=== PATIENT | female | born 2000 | race Two or more races ===

== ENCOUNTER 2019-12-29 13:20 | Inpatient (IN) | payer MEDICAID ==
[~2019-12-29] VITALS: Ht 154.9 cm; Wt 66.7 kg
[2019-12-29] MEDS ORDERED: PREN-96 PO (13:48)
[2019-12-29] MEDS ORDERED: LACT. RINGERS/OXYTOCIN 20UNITS 1,000 ML IV SCH ×2 (14:11→19:23)
[2019-12-29] MEDS ORDERED: LACTATED RINGER'S 1,000 ML IV SCH (14:11)
[2019-12-29] MEDS ORDERED: LIDOCAINE 2%HCL (LOCAL ANESTH.) INJ 20ML MDV ID PRN (14:15)
[2019-12-29] MEDS ORDERED: DERMOPLAST 60ML BOTTLE TOP PRN (14:15)
[2019-12-29] MEDS ORDERED: PHISODERM TOP SOLN 240ML BTL TOP PRN (14:15)
[2019-12-29] MEDS ORDERED: ONDANSETRON HCL 4 MG/2 ML VIAL IV PRN (14:15)
[2019-12-29] MEDS ORDERED: BUTORPHANOL TARTRATE 2 MG/1 ML VIAL IV PRN (14:15)
[2019-12-29] MEDS ORDERED: METHYLERGONOVINE MALEATE 0.2 MG/ML AMP IM PRN (14:15)
[2019-12-29] MEDS: WITCH HAZEL-GLYCERIN PAD TOP PRN (15:04)
[2019-12-29 15:23] LABS: Basophils # (auto) 0 10 ^3/uL (0-0.2); Basophils % (auto) 0.1 % (0.0-2.0); Eosinophils # (auto) 0 10 ^3/uL (0-0.8); Eosinophils % (auto) 0.3 % (0.0-7.0); Hematocrit 36.7 % (36.0-46.0); Hemoglobin 12.3 g/dL (12.2-16.2); Lymphocytes # (auto) 1.8 10 ^3/uL (0.4-5.4); Lymphocytes % (auto) 20.2 % (10.0-50.0); Mean Corpuscular Hgb Conc. 33.4 g/dL (32.0-36.0); Mean Corpuscular Volume 89.8 fL (80.0-100.0); Monocytes # (auto) 0.6 10 ^3/uL (0-1.3); Neutrophils # (auto) 6.6 10 ^3/uL (1.6-8.6); Neutrophils % (auto) 72.4 % (37.0-80.0); Nucleated Red Blood Cells % 0.1 %; Platelet Count (auto) 259 10^3/uL (140-450); Red Blood Cells 4.09 10^6/uL (4.0-5.20); Red Cell Distribution Width 15.1 % (11.8-14.3); White Blood Cell 9.1 10^3/uL (4.4-10.8)
[2019-12-29 15:51] LABS: Albumin 2.8 g/dL (3.4-5.0); Calcium 8.9 mg/dL (8.5-10.1); Potassium 3.7 mmol/L (3.5-5.1)
[2019-12-29 15:52] LABS: INR 0.91 (0.9-1.15); Partial Thromboplastin Time 26.5 sec (23.0-31.2)
[2019-12-29 15:54] LABS: Bilirubin, Total 0.7 mg/dL (0.2-1.0); Total Protein 6.7 g/dL (6.4-8.2)
[2019-12-29] MEDS ORDERED: LACT. RINGERS/OXYTOCIN 20UNITS 500 ML IV ONE (18:23)
[2019-12-29] MEDS ORDERED: ACETAMINOPHEN 325 MG TAB PO PRN (20:15)
--- NOTE | 2019-12-29 20:46 | NUR ---
Ambulation: Patient OOB with standby assistance by RN. Patient ambulated to bathroom with steady gait. Patient able to void 500ml without difficulty. Pericare teaching provided with returned demonstration by patient. Clean gown provided and bed linen changed. Patient ambulated back to bed with steady gait and no distress noted.
[2019-12-29 23:30] VITALS: BP 110/68
[2019-12-30] MEDS: IBUPROFEN 600 MG TAB PO PRN ×5 (01:08→20:54)
[2019-12-30 03:30] VITALS: BP 109/59
--- NOTE | 2019-12-30 05:29 | NUR ---
IV removal IV DC'd with clean technique, catheter fully intact. Pressure dressing applied to site. Patient tolerated well. NOTE:
[2019-12-30 06:06] LABS: RPR Non Reactive (Non Reactive)
[2019-12-30 07:09] VITALS: BP 109/56
[2019-12-30] MEDS: WITCH HAZEL-GLYCERIN PAD TOP PRN (09:07)
[2019-12-30 11:33] VITALS: BP 120/71
[2019-12-30 15:00] VITALS: BP 116/61
--- NOTE | 2019-12-30 17:20 | NUR ---
CALLED DR. YOST WITH DEPRESSION SCORE OF 11. NEW ORDERS RECEIVED ORDER TELE PSYC, AND SOCIAL SERVICE CONSULT.
[2019-12-30 19:00] VITALS: BP 103/65
--- NOTE | 2019-12-30 21:15 | NUR ---
Tele Pysch monitor placed in pt room and set up. Information given to pt on what was going to take place. Pt verbalized understanding and is awaiting for the consultation to begin. Monitor on and camera checked.
[2019-12-30 23:10] VITALS: BP 112/61
[2019-12-31 03:00] VITALS: BP 109/64
[2019-12-31] MEDS: IBUPROFEN 600 MG TAB PO PRN (05:19)
[2019-12-31 07:00] VITALS: BP 101/55
--- NOTE | 2019-12-31 09:43 | NUR ---
Called Radha floorworker lasting, informed of consult for high PPD, SBAR given, tele psych completed. Verbalized understanding. Stated she will be on unit in 30 minutes.
--- NOTE | 2019-12-31 10:00 | NUR ---
Radha social problems specialist at bedside. Stated patient is cleared for discharge from her stand point.
[2019-12-31 11:00] VITALS: BP 105/58
--- NOTE | 2019-12-31 11:00 | NUR ---
Discharge: Discharge instructions given as ordered. Pt encouraged to follow up with [facility] as instructed. All questions and concerns addressed. Patient verbalized understanding. Medication reconciliation completed and copy given to patient. All required/requested vaccines given and copies of vaccinations given to patient. Patient encouraged to prepare to depart unit.
--- NOTE | 2019-12-31 11:40 | NUR ---
Discharge: Patient taken to vehicle via wheelchair with all personal belongings, accompanied by staff and family member. No distress noted at time of departure, no adverse changes in status since initial assessment.
--- NOTE | 2019-12-31 15:50 | NUR ---
assessment Per ss consult patient scored 11 on post depression scale. Patient is a 19 year old female who is alert and oriented. Patient lives home with her sig other and family. Patient is bonding well with . Patient is very positive. Patient has all provisions for the baby. Patient has great family an social support. FOB is at bedside Mir Pedersen. FOB very supportive and will be helping with baby. Patient informed me she is not depressed. Patient informed me that she would get a little emotional towards the end of her , but nothing too bad. Patient states she feels great and is happy. Patient has no SI or HI. Patient has been given the phone number and address to crisis center if she should need it. Patient has been informed of [facility] behavioral health line if needed. Patient has been cleared by tele psych with no needs or concerns for patient. Patient is cleared on socil service stand point. Addendum: 12/31/19 at 1602 by Radha Hubbard Amended: Links added.
== END 2019-12-31 11:40 | disposition home or self-care (01) | DRG 560 ==
LOC: LDRP 13:20 → OBSVTOIN 14:10 → LDRP 19:47
PROVIDERS: ADMIT Obstetrics & Gynecology; ATTEND Obstetrics & Gynecology
PROC: 10E0XZZ Delivery of Products of Conception, External Approach (ICD-10-PCS; principal; 2019-12-29)
PROC: 0HQ9XZZ Repair Perineum Skin, External Approach (ICD-10-PCS; 2019-12-29)
DX: O77.0 Labor and delivery complicated by meconium in amniotic fluid (principal); O70.0 First degree perineal laceration during delivery; Z37.0 Single live birth; Z3A.39 39 weeks gestation of pregnancy; Z20.828 Contact with and (suspected) exposure to other viral communicable diseases
CPT/HCPCS: 36415; 59025; 59409; 80053; 81002; 84112; 85025; 85610; 85730; 86592; 86850; 86900; 86901; 87426; 94760; 96360; 96361; 96365; 96366; G0378; J2590